=== PATIENT | female | born 1965 | race Caucasian/White ===

== ENCOUNTER 2019-09-10 06:49 | Day surgery (SDC) | payer OTHER ==
[2019-09-01 15:58] VITALS: BMI 20.9
[2019-09-10] MEDS ORDERED: PROPOFOL 20 ML ONE (08:07)
[2019-09-10] MEDS ORDERED: MIDAZOLAM HCL 2 MG/2 ML SINGLE DOSE VIAL ONE (08:07)
[2019-09-10] MEDS ORDERED: LIDOCAINE HCL 2% (50ML VIAL) INF ONE (08:39)
[2019-09-10 09:09] VITALS: BP 133/79; PULSE 61; TEMP 98.4
--- NOTE | 2019-09-12 15:10 | PATH ---
Surgical Pathology Report Patient Name: MINDY MACHADO Med. Rec. #: [id number] /Age/Gender: 1965 (Age: 54) / F Account: [id number] Location: [facility] AM[facility] Taken: 09/10/2019 Received: 09/10/2019 Reported: 09/12/2019 Physicians: Edmond Domingo M.D. Specimen(s) Received LEFT THUMB MASS Clinical History Left thumb mass Final Diagnosis THUMB, LEFT, MASS, EXCISION: GANGLION CYST. Electronically Signed Za Rodriguez M.D. Gross Description Received in formalin labeled "left thumb mass," is a 0.5 x 0.3 x 0.2 cm morrison portion of soft tissue, possibly consistent with a cyst. The specimen is submitted in toto in one cassette. 09/11/201909/11/2019
--- NOTE | 2019-09-15 11:09 | OP ---
DATE OF OPERATION: 09/10/2019 PREOPERATIVE DIAGNOSIS: Left thumb mass. POSTOPERATIVE DIAGNOSIS: Left thumb mass. OPERATIVE PROCEDURE: Left thumb mass excision. SURGEON: Edmond Mcgarry MD ANESTHESIA: Local with sedation. COMPLICATIONS: None. ESTIMATED BLOOD LOSS: Minimal. INDICATIONS FOR PROCEDURE: The patient is a 54-year-old female with above finding indicated for operative procedure. Risks, benefits, and alternatives were discussed with the patient at length. Proper informed consent was obtained. DESCRIPTION OF PROCEDURE: After proper indication of the patient and correct operative site, patient was brought to the operating room and placed supine with prominences well padded. Sedation and local anesthesia were given. Left upper extremity was prepped and draped in the usual sterile fashion. A well-padded tourniquet was placed with a sterile prep. Esmarch bandage was used to exsanguinate the left upper extremity. Tourniquet was inflated to 250 mmHg. Curvilinear incision was made over the dorsal aspect of the IP joint of the thumb. Incision was taken sharply through the skin with blunt and sharp dissection through the subcutaneous tissue. Mass was found to be emanating off the dorsal aspect of the extensor tendon. Was excised in whole and sent for pathologic evaluation. Wound was irrigated and repaired with a 5-0 fast-absorbing plain gut sutures. Sterile dressings were applied. Patient was brought to the recovery room in stable condition. She tolerated the procedure well. EDMOND MCGARRY M.D. [id number]
== END 2019-09-10 09:24 | disposition home or self-care (01) ==
LOC: FASU 06:49
PROVIDERS: ATTEND Orthopaedic Surgery Hand Surgery
PROC: 0LB80ZZ Excision of Left Hand Tendon, Open Approach (ICD-10-PCS; principal; 2019-09-10 08:39)
DX: M67.442 Ganglion, left hand (principal)
CPT/HCPCS: 84703; 88304-TC